=== PATIENT | female | born 1975 | race African-American/Black ===

== ENCOUNTER 2016-12-08 02:23 | Emergency (ER) | payer BC ==
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
[2016-12-08 02:46] VITALS: BMI 45.3
[2016-12-08 02:50] LABS: BASOPHILS % (AUTO) 0.4 % (0.2-1.0); EOSINOPHILS % (AUTO) 0.1 % (0.9-2.9); HEMOGLOBIN 12.7 g/dL (12.0-16.0); LYMPHOCYTES # (AUTO) 1.2 X10^3/uL (1.3-2.9); LYMPHOCYTES % (AUTO) 11.4 % (21.0-51.0); MEAN CORPUSCULAR HEMOGLOBIN 30.1 pg (27.0-34.0); MEAN CORPUSCULAR HGB CONC 33.4 g/dL (33.0-35.0); MEAN CORPUSCULAR VOLUME 90.2 fL (80.0-100.0); MEAN PLATELET VOLUME 7.9 fL (7.4-11.0); MONOCYTES # (AUTO) 0.5 x10^3/uL (0.3-0.8); MONOCYTES % (AUTO) 4.5 % (0.0-13.0); NEUTROPHILS # (AUTO) 9.1 x10^3/uL (2.2-4.8); NEUTROPHILS % (AUTO) 83.6 % (42.0-75.0); PLATELET COUNT 283 X10^3/uL (150.0-450.0); RED BLOOD COUNT 4.21 X10^6/uL (3.5-5.4); RED CELL DISTRIBUTION WIDTH 13.5 % (11.6-16.5); WHITE BLOOD COUNT 10.9 X10^3/uL (3.6-10.0)
[2016-12-08] MEDS ORDERED: NARCAN INJ IVP ONE (03:04)
[2016-12-08] MEDS ORDERED: NARCAN INJ ONE (03:06)
[2016-12-08 03:13] LABS: BLOOD UREA NITROGEN 17 mg/dL (7-18); CALCIUM 8.9 mg/dL (8.5-10.1); CARBON DIOXIDE 30.4 mmol/L (21-32); CHLORIDE 99 mmol/L (98-107); COR NA(FOR HYPERGLY) 140 mmol/L (136-145); CREATININE 1.68 mg/dL (0.55-1.02); GLUCOSE 176 mg/dL (65-99); SODIUM 138 mmol/L (136-145); TROPONIN I 0.54 ng/mL (0-1.5); eGFR BLACK RACES 43 (>60); eGFR NON BLACK RACES 36 (>60)
[2016-12-08 03:17] LABS: ALANINE AMINOTRANSFERASE 30 Units/L (12-78); ALBUMIN 4.4 g/dL (3.4-5.0); ALKALINE PHOSPHATASE 94 Units/L (46-116); ASPARTATE AMINO TRANSFERASE 27 Units/L (15-37); CKMB % 0.7 % (<4); CREATINE KINASE 536 Units/L (26-192); CREATINE KINASE MB 3.5 ng/mL (0-4.0)
[2016-12-08] MEDS ORDERED: CATAPRES TAB 0.2 MG ONE (03:17)
[2016-12-08] MEDS ORDERED: CATAPRES TAB 0.2 MG PO ONE (03:17)
[2016-12-08 03:22] LABS: BILIRUBIN,URINE NEGATIVE (NEGATIVE); BLOOD/HEMOGLOBIN,URINE 1+ (NEGATIVE); GLUCOSE, URINE NEGATIVE (NEGATIVE); KETONES,URINE NEGATIVE (NEGATIVE); LEUKOCYTE ESTERASE ,URINE NEGATIVE (NEGATIVE); NITRITES,URINE NEGATIVE (NEGATIVE); PROTEIN,URINE 2+ (NEGATIVE); UROBILINOGEN,URINE NORMAL (NORMAL)
[2016-12-08 03:27] LABS: D DIMER 188 ng/mL (0-400)
[2016-12-08 03:28] LABS: APPEARANCE,URINE CLEAR (CLEAR); BACTERIA,URINE 1+ /HPF (NEGATIVE); COLOR,URINE YELLOW (YELLOW); HYALINE CASTS, URINE MANY /LPF (NEGATIVE); RBC,URINE 0-2 /HPF (NEGATIVE); SQUAMOUS EPITHELIAL CELL,UR RARE /HPF (NEGATIVE)
[2016-12-08] MEDS ORDERED: ROMAZICON INJ 0.5 MG IVP ONE (04:12)
[2016-12-08] MEDS ORDERED: ROCEPHIN VIAL 1 GM 1 GM in NS 50 ML IV + SPIKE MINIBAG* 50 ML IV ONE (04:14)
[2016-12-08] MEDS ORDERED: ROMAZICON INJ 0.5 MG ONE (04:15)
[2016-12-08] MEDS ORDERED: ROCEPHIN 1 GM IV PREMIX * OUT OF STOCK 50 ML IV ONE (04:31)
[2016-12-08 05:07] VITALS: BP 138/95
== END 2016-12-08 05:40 | disposition home or self-care (01) ==
LOC: ER 02:23
DX: N18.9 Chronic kidney disease, unspecified (principal); R41.82 Altered mental status, unspecified; N39.0 Urinary tract infection, site not specified; T50.901A Poisoning by unspecified drugs, medicaments and biological substances, accidental (unintentional), initial encounter; I10 Essential (primary) hypertension
CPT/HCPCS: 36415; 51702; 70450; 71010; 80053; 80307; 81001; 82550; 82553; 83735; 84484; 85025; 85378; 85610; 85730; 87086; 93005; 93010; 96365; 96374; 99283; A4222; G0434; J0696; J2310; J3490

== ENCOUNTER 2016-12-16 14:31 | Observation (INO) | payer BC ==
[2016-12-16] MEDS ORDERED: APRESOLINE INJ 20 MG VIAL IVP PRN (17:42)
--- NOTE | 2016-12-16 17:53 | DR.H&P ---
H&P - History & Physical for Day of: H&P Date: 12/16/16 - Chief Complaint Chief Complaint: sob, chest tightness, elevated blood pressure - Allergies Allergies/Adverse Reactions: Allergies Allergy/AdvReac Type Severity Reaction Status Date / Time MS No Known Drug Allergy Allergy Verified 08/05/15 19:34 [No Known Drug Allergy] - History of Present Illness History of Present Illness: 40 BF ADMITTED FROM DR [place] OFFICE WITH CO CHEST PAIN, PRESSURE AND ELEVATED BP. PT WAS SEEN ONE WEEK AGO WITH ELEVATED BP , TREATED INTHE OFFICE WITH CATAPRES AND STARTED ON AMLODIPINE AND HCTZ WITH OUT IMPROVED. PT ALSO REPORTS RECENT ER VISIST DUE TO CHEST PAIN. PT HAS PMH OF HTN AND OBESITY. PLAN TO ADMIT FOR FURTHER EVALUATION OF HYPERTENSIVE URGENCY AND CHEST PAIN - Past Medical History Past Medical History: Anxiety, Hypertension, Hypothyroidism - Past Surgical History Surgical History: - Family History Family Medical History: Coronary Artery Disease - Social History Does patient currently use any type of tobacco product: No Have you used tobacco products in the last 12 months: No Type of Tobacco Use: None Does any household member use tobacco: No Alcohol Use: None Drug Use: None - Medications Home Medications: Amlodipine Besylate [NORVASC 10 MG *] 10 mg PO 12/16/16 [History] Hydrochlorothiazide [HYDROCHLOROTHIAZIDE 12.5 MG CAP *] 12.5 mg PO 12/16/16 [ History] - Review of Systems Constitutional: Weakness Eyes: No Symptoms Reported ENT: No Symptoms Reported Respiratory: Shortness of Breath Cardiovascular: Chest Pain, Paroxysmal Noc. Dyspnea, Edema Gastrointestinal: No Symptoms Reported Genitourinary: No Symptoms Reported Musculoskeletal: Back Pain, Leg Pain Skin: No Symptoms Reported Neurological: No Symptoms Reported - Physical Exam Vital Signs: Blood Pressure [Left Arm] 138/95 Blood Pressure 138/95 Oriented: Normal Eyes: Normal Ear: Normal Nose: Normal Throat: Normal Respiratory: RLL Diminished, LLL Diminished Cardiovascular: Tachycardia, Edema : Normal Auscultation: Bowel Sounds: Normal Palpation: Normal Tenderness: Normal Skin: Normal Musculoskeletal: Leg Psychiatric: Anxiety, Depression Speech Pattern: Clear, Appropriate - Assessment/Plan (1) Hypertensive urgency Status: Acute Plan: ADMIT. CARROT HARVESTER, EKG AND CARDIAC ENZYMES. CXR ON ADMISSION. ECHO , AM CTA RENAL ARTERIES, STRICT I & OS. RESUME HOME MEDS. HYDRALAZINE IV PRN BP >160/100 (2) Chest pain Qualifiers: Chest pain type: C Ischemic chest pain type: I Status: Acute Plan: SEE ABOVE (3) SOB (shortness of breath) Status: Acute
[2016-12-16] MEDS ORDERED: LEVSIN/MAALOX/LIDOC VISC PO PRN (17:56)
[2016-12-16] MEDS: LASIX IVP SCH ×2 (18:00→21:18)
[2016-12-16 18:01] VITALS: BMI 53.4
[2016-12-16 18:49] LABS: BLOOD UREA NITROGEN 13 mg/dL (7-18); CALCIUM 9.9 mg/dL (8.5-10.1); CARBON DIOXIDE 30.6 mmol/L (21-32); CHLORIDE 98 mmol/L (98-107); COR NA(FOR HYPERGLY) 138 mmol/L (136-145); CREATININE 0.91 mg/dL (0.55-1.02); GLUCOSE 122 mg/dL (65-99); SODIUM 137 mmol/L (136-145); TROPONIN I < 0.02 ng/mL (0-1.5); eGFR BLACK RACES > 60 (>60); eGFR NON BLACK RACES > 60 (>60)
[2016-12-16 18:51] LABS: ALANINE AMINOTRANSFERASE 25 Units/L (12-78); ALBUMIN 4.4 g/dL (3.4-5.0); ALKALINE PHOSPHATASE 89 Units/L (46-116); ASPARTATE AMINO TRANSFERASE 19 Units/L (15-37); CKMB % 0.8 % (<4); CREATINE KINASE 119 Units/L (26-192); CREATINE KINASE MB < 1.0 ng/mL (0-4.0); TOTAL PROTEIN 9.1 g/dL (6.4-8.2)
[2016-12-16 19:02] LABS: D DIMER < 100 ng/mL (0-400)
[2016-12-16 19:05] LABS: BASOPHILS % (AUTO) 0.5 % (0.2-1.0); EOSINOPHILS # (AUTO) 0.1 x10^3/uL (0.0-0.2); EOSINOPHILS % (AUTO) 0.8 % (0.9-2.9); HEMATOCRIT 39.4 % (36.0-47.0); HEMOGLOBIN 13.3 g/dL (12.0-16.0); LYMPHOCYTES # (AUTO) 1.7 X10^3/uL (1.3-2.9); LYMPHOCYTES % (AUTO) 24.9 % (21.0-51.0); MEAN CORPUSCULAR HEMOGLOBIN 29.9 pg (27.0-34.0); MEAN CORPUSCULAR HGB CONC 33.8 g/dL (33.0-35.0); MEAN CORPUSCULAR VOLUME 88.2 fL (80.0-100.0); MEAN PLATELET VOLUME 7.9 fL (7.4-11.0); MONOCYTES # (AUTO) 0.5 x10^3/uL (0.3-0.8); MONOCYTES % (AUTO) 7.2 % (0.0-13.0); NEUTROPHILS # (AUTO) 4.5 x10^3/uL (2.2-4.8); NEUTROPHILS % (AUTO) 66.6 % (42.0-75.0); PLATELET COUNT 305 X10^3/uL (150.0-450.0); RED BLOOD COUNT 4.46 X10^6/uL (3.5-5.4); RED CELL DISTRIBUTION WIDTH 13.5 % (11.6-16.5); WHITE BLOOD COUNT 6.8 X10^3/uL (3.6-10.0)
[2016-12-16 19:39] LABS: BILIRUBIN,URINE NEGATIVE (NEGATIVE); BLOOD/HEMOGLOBIN,URINE NEGATIVE (NEGATIVE); GLUCOSE, URINE NEGATIVE (NEGATIVE); KETONES,URINE NEGATIVE (NEGATIVE); LEUKOCYTE ESTERASE ,URINE NEGATIVE (NEGATIVE); NITRITES,URINE NEGATIVE (NEGATIVE); PROTEIN,URINE NEGATIVE (NEGATIVE); UROBILINOGEN,URINE NORMAL (NORMAL)
[2016-12-16 19:47] LABS: APPEARANCE,URINE CLEAR (CLEAR); BACTERIA,URINE NEGATIVE /HPF (NEGATIVE); COLOR,URINE YELLOW (YELLOW); RBC,URINE 0-1 /HPF (NEGATIVE); SQUAMOUS EPITHELIAL CELL,UR RARE /HPF (NEGATIVE)
[2016-12-16] MEDS: ZOLOFT PO SCH (21:14)
[2016-12-16] MEDS: MICRO K EXTEN CAP 10 MEQ PO SCH (21:14)
[2016-12-16] MEDS: NS 1000 ML 1,000 ML IV SCH (21:15)
--- NOTE | 2016-12-17 01:13 | RAD ---
Chest, one view Indication: Hypertension Comparison: 12/08/2016 Findings: The heart size is normal. The lungs are clear, without focal infiltrates or pleural effusi on. The bony thorax is unremarkable. Impression: No acute chest process or significant change from prior. Reported By:
[2016-12-17 05:25] LABS: ALANINE AMINOTRANSFERASE 23 Units/L (12-78); ALBUMIN 4.3 g/dL (3.4-5.0); ALKALINE PHOSPHATASE 86 Units/L (46-116); ASPARTATE AMINO TRANSFERASE 16 Units/L (15-37); BLOOD UREA NITROGEN 15 mg/dL (7-18); CALCIUM 9.3 mg/dL (8.5-10.1); CARBON DIOXIDE 28.1 mmol/L (21-32); CHLORIDE 98 mmol/L (98-107); COR NA(FOR HYPERGLY) 137 mmol/L (136-145); CREATININE 1.04 mg/dL (0.55-1.02); GLUCOSE 115 mg/dL (65-99); SODIUM 137 mmol/L (136-145); TOTAL PROTEIN 8.8 g/dL (6.4-8.2); eGFR BLACK RACES > 60 (>60); eGFR NON BLACK RACES > 60 (>60)
[2016-12-17 05:34] LABS: BASOPHILS % (AUTO) 0.1 % (0.2-1.0); EOSINOPHILS % (AUTO) 0.2 % (0.9-2.9); HEMATOCRIT 38.2 % (36.0-47.0); LYMPHOCYTES # (AUTO) 1.6 X10^3/uL (1.3-2.9); LYMPHOCYTES % (AUTO) 20.8 % (21.0-51.0); MEAN CORPUSCULAR HEMOGLOBIN 30.1 pg (27.0-34.0); MEAN CORPUSCULAR HGB CONC 34.1 g/dL (33.0-35.0); MEAN CORPUSCULAR VOLUME 88.2 fL (80.0-100.0); MONOCYTES # (AUTO) 0.8 x10^3/uL (0.3-0.8); MONOCYTES % (AUTO) 9.5 % (0.0-13.0); NEUTROPHILS # (AUTO) 5.5 x10^3/uL (2.2-4.8); NEUTROPHILS % (AUTO) 69.4 % (42.0-75.0); PLATELET COUNT 295 X10^3/uL (150.0-450.0); RED BLOOD COUNT 4.33 X10^6/uL (3.5-5.4); RED CELL DISTRIBUTION WIDTH 13.4 % (11.6-16.5); WHITE BLOOD COUNT 7.9 X10^3/uL (3.6-10.0)
[2016-12-17] MEDS: PROTONIX INJ 40 MG VIAL IVP SCH (08:43)
[2016-12-17] MEDS: LASIX IVP SCH ×2 (08:43→20:59)
[2016-12-17] MEDS: ZOLOFT PO SCH (08:44)
[2016-12-17] MEDS: MICRO K EXTEN CAP 10 MEQ PO SCH (08:44)
[2016-12-17] MEDS: NORVASC TAB 10 MG PO SCH (08:45)
[2016-12-17] MEDS ORDERED: RESTORIL CAP 15 MG PO PRN (13:33)
[2016-12-17] MEDS ORDERED: NORCO 5/325 MG TAB PO PRN (17:42)
[2016-12-17] MEDS: NS 1000 ML 1,000 ML IV SCH (18:30)
[2016-12-18 05:40] LABS: ALANINE AMINOTRANSFERASE 25 Units/L (12-78); ALBUMIN 4.2 g/dL (3.4-5.0); ALKALINE PHOSPHATASE 83 Units/L (46-116); ASPARTATE AMINO TRANSFERASE 20 Units/L (15-37); BLOOD UREA NITROGEN 23 mg/dL (7-18); CALCIUM 8.6 mg/dL (8.5-10.1); CARBON DIOXIDE 29.1 mmol/L (21-32); CHLORIDE 98 mmol/L (98-107); CREATININE 1.12 mg/dL (0.55-1.02); GLUCOSE 101 mg/dL (65-99); SODIUM 137 mmol/L (136-145); TOTAL PROTEIN 8.7 g/dL (6.4-8.2); eGFR BLACK RACES > 60 (>60); eGFR NON BLACK RACES 57 (>60)
[2016-12-18 05:46] LABS: BASOPHILS % (AUTO) 0.3 % (0.2-1.0); EOSINOPHILS # (AUTO) 0.1 x10^3/uL (0.0-0.2); EOSINOPHILS % (AUTO) 0.9 % (0.9-2.9); HEMATOCRIT 39.7 % (36.0-47.0); HEMOGLOBIN 13.3 g/dL (12.0-16.0); LYMPHOCYTES # (AUTO) 2.4 X10^3/uL (1.3-2.9); LYMPHOCYTES % (AUTO) 25.2 % (21.0-51.0); MEAN CORPUSCULAR HEMOGLOBIN 29.7 pg (27.0-34.0); MEAN CORPUSCULAR HGB CONC 33.6 g/dL (33.0-35.0); MEAN CORPUSCULAR VOLUME 88.5 fL (80.0-100.0); MEAN PLATELET VOLUME 8.2 fL (7.4-11.0); NEUTROPHILS # (AUTO) 6.1 x10^3/uL (2.2-4.8); NEUTROPHILS % (AUTO) 63.6 % (42.0-75.0); PLATELET COUNT 291 X10^3/uL (150.0-450.0); RED BLOOD COUNT 4.48 X10^6/uL (3.5-5.4); RED CELL DISTRIBUTION WIDTH 13.2 % (11.6-16.5); WHITE BLOOD COUNT 9.6 X10^3/uL (3.6-10.0)
[2016-12-18] MEDS: NS 1000 ML 1,000 ML IV SCH (06:07)
[2016-12-18 06:38] LABS: ERYTHROCYTE SEDIMENTATION RATE 25 MM/HOUR (0-20)
[2016-12-18] MEDS ORDERED: NS 1000 ML 1,000 ML ONE (08:45)
[2016-12-18] MEDS ORDERED: LIBRIUM PO ONE (09:10)
[2016-12-18] MEDS ORDERED: BENADRYL INJ 50 MG VIAL ONE (09:28)
[2016-12-18] MEDS ORDERED: COZAAR PO SCH (10:00)
[2016-12-18] MEDS ORDERED: FENTANYL INJ 100 mcg ONE (10:08)
[2016-12-18] MEDS ORDERED: VERSED ONE ×2 (10:08→10:23)
[2016-12-18] MEDS: LASIX IVP SCH (10:36)
[2016-12-18] MEDS: PROTONIX INJ 40 MG VIAL IVP SCH (11:02)
[2016-12-18] MEDS: NORVASC TAB 10 MG PO SCH (11:02)
[2016-12-18] MEDS: ZOLOFT PO SCH (11:03)
[2016-12-18 16:03] VITALS: BP 128/67
== END 2016-12-18 18:10 | disposition home or self-care (01) | DRG 305 ==
LOC: MED/SURG 14:31
PROVIDERS: ADMIT Internal Medicine; ATTEND Internal Medicine
PROC: 0DB68ZX Excision of Stomach, Via Natural or Artificial Opening Endoscopic, Diagnostic (ICD-10-PCS; principal; 2016-12-18 14:45)
DX: I16.0 Hypertensive urgency (principal); R07.89 Other chest pain; R06.02 Shortness of breath; E03.8 Other specified hypothyroidism; R10.13 Epigastric pain; R94.31 Abnormal electrocardiogram [ECG] [EKG]; R60.0 Localized edema; K21.9 Gastro-esophageal reflux disease without esophagitis; K44.9 Diaphragmatic hernia without obstruction or gangrene; K20.8 Other esophagitis; K29.60 Other gastritis without bleeding; K25.9 Gastric ulcer, unspecified as acute or chronic, without hemorrhage or perforation; R70.0 Elevated erythrocyte sedimentation rate; R79.82 Elevated C-reactive protein (CRP); Z79.899 Other long term (current) drug therapy
CPT/HCPCS: 36415; 71010; 80053; 80320; 81001; 82550; 82553; 84484; 85025; 85378; 85652; 86140; 86677; 93005; 93010; 93306; 94760; A4222; C9113; A4217; G0378; G6040; J1200; J1940; J2250; J3010

== ENCOUNTER 2017-04-09 17:28 | Observation (INO) | payer BC ==
--- NOTE | 2017-04-09 18:18 | DR.H&P ---
H&P - History & Physical for Day of: H&P Date: 04/09/17 - Chief Complaint Chief Complaint: TALAVERA, ELEVATED BLOOD PRESSURE, SOB - Allergies Allergies/Adverse Reactions: Allergies Allergy/AdvReac Type Severity Reaction Status Date / Time No Known Allergies Allergy Verified 12/16/16 17:52 - History of Present Illness History of Present Illness: patient is a 41-year-old black female who was a direct admit from Dr. Ovalle's officeafter presenting with complaints of headache and fatigue and elevated blood pressure. Patient's blood pressure in the office was 220/120 manually. Patient was given Catapres 0.11 dose with blood pressure improving to 212/120. Patient complained of fatigue and shortness of breath on exertion. Patient states she has been taking prescription medicine as prescribed for blood pressure control. Patient states she is very anxious has been unable to to sleep for several nights. Plan to admit patient for further evaluation of uncontrolled hypertension, administer IV hydralazine and by mouth Catapres, serial cardiac enzymes and EKGs. - Past Medical History Past Medical History: Anxiety, Hypertension, Hypothyroidism - Past Surgical History Surgical History: - Family History Family Medical History: Coronary Artery Disease - Social History Does patient currently use any type of tobacco product: No Have you used tobacco products in the last 12 months: No Type of Tobacco Use: None Does any household member use tobacco: No Alcohol Use: None Drug Use: None - Review of Systems Constitutional: Weakness, Malaise Eyes: No Symptoms Reported ENT: No Symptoms Reported Respiratory: SOB with Excertion Cardiovascular: No Symptoms Reported, Edema, Light Headedness Gastrointestinal: No Symptoms Reported Genitourinary: No Symptoms Reported Musculoskeletal: No Symptoms Reported Skin: No Symptoms Reported - Physical Exam Vital Signs: Blood Pressure [Right Arm] 128/67 Blood Pressure [Left Arm] 169/82 Blood Pressure 128/67 Oriented: Normal Eyes: Normal Ear: Normal Nose: Normal Throat: Normal Respiratory: RLL Diminished, LLL Diminished Cardiovascular: Normal, Edema : Normal Auscultation: Bowel Sounds: Normal Palpation: Normal Tenderness: Normal Skin: Normal Musculoskeletal: Normal Psychiatric: Anxiety Affect: Anxious Speech Pattern: Clear - Assessment/Plan (1) Hypertensive urgency Status: Acute Plan: admit, serial cardiac enzymes and EKGs, blood pressure monitoring, supplemental O2, IV hydralazine and Catapres, resume home medications, admission labs. Plan to obtain a CTA of the renal arteries to rule out renal artery stenosis due to patient's uncontrolled malignant hypertension and patient 's family history of uncontrolled hypertension and renal disease. (2) SOB (shortness of breath) Status: Acute (3) Hypothyroid Status: Acute
[2017-04-09] MEDS ORDERED: RESTORIL CAP 15 MG PO PRN (19:03)
[2017-04-09] MEDS ORDERED: APRESOLINE INJ 20 MG VIAL IVP PRN (19:03)
[2017-04-09 19:28] LABS: BASOPHILS % (AUTO) 0.6 % (0.2-1.0); EOSINOPHILS # (AUTO) 0.1 x10^3/uL (0.0-0.2); EOSINOPHILS % (AUTO) 1.8 % (0.9-2.9); HEMOGLOBIN 11.6 g/dL (12.0-16.0); LYMPHOCYTES # (AUTO) 1.8 X10^3/uL (1.3-2.9); LYMPHOCYTES % (AUTO) 35.4 % (21.0-51.0); MEAN CORPUSCULAR HEMOGLOBIN 29.5 pg (27.0-34.0); MEAN CORPUSCULAR HGB CONC 33.3 g/dL (33.0-35.0); MEAN CORPUSCULAR VOLUME 88.7 fL (80.0-100.0); MEAN PLATELET VOLUME 7.6 fL (7.4-11.0); MONOCYTES # (AUTO) 0.5 x10^3/uL (0.3-0.8); MONOCYTES % (AUTO) 9.1 % (0.0-13.0); NEUTROPHILS # (AUTO) 2.7 x10^3/uL (2.2-4.8); NEUTROPHILS % (AUTO) 53.1 % (42.0-75.0); PLATELET COUNT 307 X10^3/uL (150.0-450.0); RED BLOOD COUNT 3.94 X10^6/uL (3.5-5.4); RED CELL DISTRIBUTION WIDTH 13.5 % (11.6-16.5); WHITE BLOOD COUNT 5.1 X10^3/uL (3.6-10.0)
[2017-04-09 19:39] LABS: ALANINE AMINOTRANSFERASE 20 Units/L (12-78); ALBUMIN 3.9 g/dL (3.4-5.0); ALKALINE PHOSPHATASE 64 Units/L (46-116); ASPARTATE AMINO TRANSFERASE 14 Units/L (15-37); BLOOD UREA NITROGEN 12 mg/dL (7-18); CALCIUM 8.3 mg/dL (8.5-10.1); CARBON DIOXIDE 29.1 mmol/L (21-32); CHLORIDE 104 mmol/L (98-107); CREATININE 0.85 mg/dL (0.55-1.02); SODIUM 141 mmol/L (136-145); TOTAL PROTEIN 7.4 g/dL (6.4-8.2); eGFR BLACK RACES > 60 (>60); eGFR NON BLACK RACES > 60 (>60)
[2017-04-09 19:53] LABS: CKMB % 0.6 % (<4); CREATINE KINASE 164 Units/L (26-192); CREATINE KINASE MB < 1.0 ng/mL (0-4.0); TROPONIN I < 0.02 ng/mL (0-1.5)
--- NOTE | 2017-04-09 20:16 | RAD ---
AP chest Indication: Hypertension with shortness of breath Comparison: 12/16/2016. Findings: Heart size is borderline enlarged. No focal airspace opacity, pleural effusion or pneumotho rax. Pulmonary vasculature is normal. No acute osseous abnormality. Impression: Borderline cardiomegaly without acute airspace disease or CHF. Reported By:
[2017-04-09 20:26] LABS: APPEARANCE,URINE CLEAR (CLEAR); BILIRUBIN,URINE NEGATIVE (NEGATIVE); BLOOD/HEMOGLOBIN,URINE 2+ (NEGATIVE); COLOR,URINE YELLOW (YELLOW); GLUCOSE, URINE NEGATIVE (NEGATIVE); KETONES,URINE NEGATIVE (NEGATIVE); LEUKOCYTE ESTERASE ,URINE NEGATIVE (NEGATIVE); NITRITES,URINE NEGATIVE (NEGATIVE); PROTEIN,URINE NEGATIVE (NEGATIVE); RBC,URINE 0-3 /HPF (NEGATIVE); UROBILINOGEN,URINE NORMAL (NORMAL)
[2017-04-09 20:27] LABS: BACTERIA,URINE NEGATIVE /HPF (NEGATIVE); SQUAMOUS EPITHELIAL CELL,UR FEW /HPF (NEGATIVE)
[2017-04-09] MEDS: CATAPRES TAB 0.1 MG PO SCH ×2 (20:31)
[2017-04-10 01:32] LABS: CKMB % 0.7 % (<4); CREATINE KINASE 135 Units/L (26-192); CREATINE KINASE MB < 1.0 ng/mL (0-4.0); TROPONIN I < 0.02 ng/mL (0-1.5)
[2017-04-10 07:50] LABS: CKMB % 0.8 % (<4); CREATINE KINASE 128 Units/L (26-192); CREATINE KINASE MB < 1.0 ng/mL (0-4.0); TROPONIN I < 0.02 ng/mL (0-1.5)
[2017-04-10] MEDS ORDERED: ZOLOFT PO SCH (09:00)
[2017-04-10] MEDS: CATAPRES TAB 0.1 MG PO SCH (10:59)
[2017-04-10 12:58] VITALS: BMI 54.2
[2017-04-10] MEDS ORDERED: NORVASC TAB 10 MG PO SCH (14:00)
[2017-04-10 18:48] VITALS: BP 154/70
[2017-04-11] MEDS ORDERED: HYDROCHLOROTHIAZIDE 12.5 MG CAP PO SCH (09:00)
[2017-04-11] MEDS ORDERED: COZAAR PO SCH (09:00)
--- NOTE | 2017-04-11 09:31 | CT ---
HISTORY: Hypertension, uncontrolled Study: Renal CTA Comparison: No priors Technique: Axial CT acquisition was performed through the abdomen and pelvis prior to and during IV c ontrast material administration. Images are reviewed and coronal and sagittal planes. There is also r otating MIP images in the coronal plane. Dose reduction techniques utilized automatic exposure contro l. Findings: Noncontrast study: The lung bases are clear. The liver, spleen, gallbladder, pancreas, adrenal glands , kidneys and abdominal aorta are normal. A metallic IUD is present within the central endometrial ca nal region. No adnexal mass or free fluid is seen. The urinary bladder is unremarkable. The osseous s tructures are intact. Renal CTA : The aorta and its branches, including the renal arteries are well opacified. There are si ngle renal arteries bilaterally. No evidence of stenosis or occlusion is seen. There is no indication of enhancing mass. No indication of fibromuscular hyperplasia is seen. IMPRESSION: Normal renal CTA. Reported By:
== END 2017-04-10 18:45 | disposition home or self-care (01) ==
LOC: ICU 17:28
PROVIDERS: ADMIT Internal Medicine; ATTEND Internal Medicine
DX: I16.0 Hypertensive urgency (principal); I12.9 Hypertensive chronic kidney disease with stage 1 through stage 4 chronic kidney disease, or unspecified chronic kidney disease; N18.9 Chronic kidney disease, unspecified; R06.02 Shortness of breath; R94.31 Abnormal electrocardiogram [ECG] [EKG]; E03.9 Hypothyroidism, unspecified
CPT/HCPCS: 36415; 71010; 74174; 80053; 80307; 81001; 82550; 82553; 84484; 85025; 93005; 93010; A4222; G0378; G0434